=== PATIENT | female | born 1990 | race Caucasian/White ===

== ENCOUNTER 2018-03-22 11:51 | Inpatient (IN) ==
[2018-03-22 13:07] LABS: Bilirubin,Urine Negative (Negative); Blood,Urine Trace (Negative); Clarity,Urine Clear (Clear); Color,Urine Yellow (Yellow); Glucose,Urine (UA) Normal (Normal); Ketones,Urine Trace mg/dL (Negative); Leukocyte Esterase,Urine Negative (Negative); Nitrite,Urine Negative (Negative); Protein,Urine Negative (Neg-Trace); Specific Gravity,Urine < 1.005 (1.010-1.025); Urobilinogen,Urine Normal (Normal)
[2018-03-22 13:19] LABS: Bacteria,Urine None Seen per hpf (None-Few); Hyaline Casts,Urine None Seen per lpf (None-Few); RBC,Urine 0-3 per hpf (0-3); Squamous Epithelial Cell,Urine Few per lpf (None-Few); WBC,Urine 0-3 per hpf (0-3)
[2018-03-22 13:24] LABS: Amphetamine Screen,Urine Negative ng/mL (Cutoff=1000); Barbiturate Screen,Urine Negative ng/mL (Cutoff=200); Benzodiazepines Screen,Urine Negative ng/mL (Cutoff=200); Cannabinoid Screen,Urine Negative ng/mL (Cutoff = 50); Cocaine Screen,Urine Negative ng/mL (Cutoff= 300); Opiate Screen,Urine Negative ng/mL (Cutoff=300); Phencyclidine Screen,Urine Negative ng/mL (Cutoff=25)
--- NOTE | 2018-03-22 13:35 | OB/GYN History & Physical ---
Date of Encounter: 03/22/18 Time of Encounter: 13:29 Assessment and Plan (1) 36 weeks gestation of Current visit: Yes Status: Acute Patient admitted for delivery Dr. Chacon aware of patient's status and POC History of Present Illness Chief complaint: Spontaneous Labor HPI: Ms. Drake is a 27 year old female @ 36w6d presents to labor and delivery from office for labor evaluation. Patient was 5-6/80/0. Patient reports contractions that are increasing in intensity. Patient denies LOF or VB. Patient reports +FM. Patient denies any problems with current but was started on Labetalol for two weeks after last delivery in 2016. BPs today 130's/ 90's. Blood type: O Positive Rubella: Immune Hep B: Nonreactive GBS: Negative Past Med Surg Social Fam HX - Past Medical History Source: patient Medical history: hypertension, migraine Psychiatric history: no psych history - Past Surgical History Surgical History: cholecystectomy - Social History Smoking Status: Former smoker Smokeless Tobacco Status: No Alcohol use: none Drug use: none Occupational status: employed Current living situation: Home - Independent Activity Level: Independent ambulation Recent Out of Country Travel Within the Last 8 Weeks: No Exposure or Possible Exposure to Illness During Travel: No - Family History Mother Name: Herbie Living Status: Still Living Hx Family Cardiac Disorders: No Hx Family Respiratory Disorders: No Hx Family Cancer: No Hx Family GI Disorders: No Hx Family Endocrine Disorder: No Hx Family Neuromuscular Disorders: No Hx Family Neurologic Disorders: No Hx Family HEENT Disorders: No Hx Family Autoimmune Disorders: No Hx Family Medical Disorders: No Obstetrical History - Pregnancies : 3 Para: 1 Term: 1 : 0 Ab's: 1 Livin Medications and Allergies Vits96/Iron Fum/Folic [ Tablet] 1 each PO DAILY 03/22/18 [ History] 3 Allergy/AdvReac Type Severity Reaction Status Date / Time No Known Allergies Allergy Verified 05/04/15 15:39 Review of System OB - Constitutional Constitutional ROS IM: no chills, no fever(s), no headache(s) - Cardiovascular Cardiovascular: no chest pain, no leg edema, no lightheadedness, no palpitations , no syncope - Respiratory Respiratory: no dyspnea - Gastrointestinal Gastrointestinal: abdominal pain, no diarrhea, no heartburn, no nausea, no vomiting - Genitourinary Genitourinary: no abnormal vaginal bleeding, no difficulty urinating, no dysuria , no flank pain, no urinary frequency, no urinary urgency, no vaginal discharge , no vaginal odor, no vaginal pruritis Exam - Constitutional Constitutional: well developed, well nourished, no acute distress, average body habitus - HEENT HEENT: Normocephaly, Mucus Membranes Moist - Neck Neck exam: full ROM, supple - Lungs Respiratory exam: CTAB - Cardiovascular Cardiovascular exam: RRR, +S1, +S2 - Abdomen Abdomen: Present: bowel sounds normal, gravid, non tender - Extremities Extremities exam: full ROM Deep Tendon Reflex Grade: 2+ Normal - Cervix Dilation: 6 Effacement: 100 Station: 0 - Uterus Uterus exam: Present: normal size, normal contour - Anus/Rectum Anus/Rectum: Present: normal perianal skin - Comments Comments: FHR 135 bpm moderate variability +15x15 accels no decels noted. Contractions 2- 4 min apart. Cat. 1 tracing Results Abnormal lab results Ur Specific [place] < 1.005 (1.010-1.025) L 03/22/18 12:55 Urine Ketones Trace mg/dL (Negative) H 03/22/18 12:55 Urine Blood Trace (Negative) H 03/22/18 12:55 All other labs normal. - VTE Reasons for not Prescribing Prophylaxis: Treatment not Indicated - Low risk for VTE
[2018-03-22] MEDS ORDERED: Ondansetron 4 MG/2 ML VIAL IVP PRN (13:42)
[2018-03-22] MEDS ORDERED: Famotidine 20 MG/2 ML VIAL IVP PRN (13:42)
[2018-03-22] MEDS ORDERED: Naloxone 0.4 MG/ML INJ IVP PRN (13:42)
[2018-03-22] MEDS ORDERED: *HR* Nalbuphine 10 MG/ML AMPUL IVP PRN (13:42)
[2018-03-22] MEDS ORDERED: Ringers Solution, Lactated 1,000 ML IVC SCH (13:45)
[2018-03-22 14:04] LABS: Basophils % 0.3 %; Eosinophils % 0.3 %; Hemoglobin 13.6 g/dL (11.5-15.4); Immature Granulocytes % 0.4 % (0-4); Lymphocytes # 2.1 K/mcL (0.6-4.6); Lymphocytes % 17.6 %; Mean Corpuscular Hemoglobin 27.5 pg (28.0-33.3); Mean Platelet Volume 10.3 fL (9.4-12.4); Monocytes # 0.7 K/mcL (0.0-1.3); Neutrophils # 8.9 K/mcL (1.6-8.9); Platelet Count 261 K/mcL (140-400); Red Blood Count 4.94 M/mcL (3.82-4.97); Red Cell Distribution Width 13.6 % (11.5-14.5); Segmented Neutrophils % 75.4 %
[2018-03-22 14:33] LABS: Alanine Aminotransferase 16 Units/L (7-52); Aspartate Amino Transferase 19 Units/L (13-39); BUN/Creatinine Ratio 21 (6-26); Blood Urea Nitrogen 10 mg/dL (6-20); Lactate Dehydrogenase 121 Units/L (140-271); Uric Acid 5.8 mg/dL (2.3-7.6); eGFR For Non-African Americans > 60 (> 60)
--- NOTE | 2018-03-22 17:38 | Anesthesia Evaluation PreOp ---
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: Denies Any Significant HX Other Medical History: GERD Anesthesia History: No Prior Anesthetic Complications, Past Anesthesia (ann marie) : Yes Test: Positive Alcohol Use: none Drug use: none Medications and Allergies Vits96/Iron Fum/Folic [ Tablet] 1 each PO DAILY 03/22/18 [ History] 3 Allergy/AdvReac Type Severity Reaction Status Date / Time No Known Allergies Allergy Verified 05/04/15 15:39 - Meds/Allergy Pre-op Review Medications Reviewed: Yes Allergies Reviewed: Yes Beta Blockers on Current Med List: No Anesthesia Results - Labs 03/22/18 13:45 03/22/18 13:45 Anesthesia Exam 130/74 88 fht 134 Height: 5'1" Weight: 77 NPO (# of Hours): 8 Pain Scale: 3 Pain Scale Used: Numeric (1 - 10) - HEENT Pupil (Motor): Pupils equal Mallampati: II Teeth: Normal Oral Opening: Greater than 3 - COMMUNICATIONS ELECTRICIAN SUPERVISOR LOC: Oriented COMMUNICATIONS ELECTRICIAN SUPERVISOR Motor: Normal RUE, Normal LUE, Normal RLE, Normal LLE, Normal Face COMMUNICATIONS ELECTRICIAN SUPERVISOR Sensory: Normal: RUE, LUE, RLE, LLE, Face - Cardiac Rhythm: Regular Murmur: None - Pulmonary Breath Sounds: bilateral Clear Respiratory Effort: Symmetrical Anesthesia Assess/Plan ASA Score: 2 Modified Alea Scale for Level of Consciousness: Cooperative, oriented, and tranquil Anesthetic Plan: Regional Autologous Blood: No Monitoring Plan: Standard Monitors Recovery Plan: Other (risks discussed questions answered, consented)
[2018-03-22] MEDS ORDERED: *HR* FentaNYL (PF) 100 MCG/2 ML VIAL EP ONE (17:40)
[2018-03-22] MEDS ORDERED: *HR* Ropivacaine/PF 0.2% 20 ML VIAL EP ONE (17:40)
[2018-03-22] MEDS ORDERED: *HR* Ropivacaine/PF 0.2% 20 ML VIAL ONE (17:42)
[2018-03-22] MEDS ORDERED: *HR* FentaNYL (PF) 100 MCG/2 ML VIAL ONE (17:42)
[2018-03-22] MEDS ORDERED: Lidocaine -MPF 2% 5 ML VIAL ONE (17:42)
[2018-03-22] MEDS ORDERED: Epidural Premix (fent/bupiv) 110 ML EP SCH (17:45)
--- NOTE | 2018-03-22 18:28 | Anesthesia Procedures ---
Date of Encounter: 03/22/18 Time of Encounter: 18:25 Procedures: Anesthesia - Epidural/Spinal Patient ID/Chart reviewed: Yes Patient examined: Yes OB Eval: Gestational age: 39.3 OB Eval: : 4 OB Eval: Hx Para: 1 OB Eval: Dilated at (cm): 7 OB Eval: Contractions: Non-stressed pattern Consent Obtained: Yes Supplemental Oxygen: None/Room Air Site Prep: Aseptic Technique, Sterile prep and drape, 0.5% Chlorhexidine/Alcohol Patient position: upright Local Anesthetic: Lidocaine 1% Amount of Local Anesthetic used: 3 Touhy Needle Gauge: 18 Touhy Needle Depth (cm): 8 Catheter Depth at Skin (cm): 20 Test Dose (1.5% Lido + Epi): Volume given (mls): 3 Test Dose Result: Negative Loading Dose: Fentanyl (mcg): 100 Loading Dose: Other: rop 0.2% 10cc Loading Dose Administered: Thru Touhy Needle Infusion Med: 0.125% Bupivacaine w/ 2 mcg/ml Fentanyl Infusion Rate (mls/hr): 15 (pcea 5cc q30") Catheter Secured in Place: Tegaderm Interspace Used: L2-L3 Loss of Resistance (DUANE): Yes Blood: No CSF: No Paresthesia: No Procedure: aseptic, mor well VSS, effective Vitals + FHT's: 122/80 78 fht 144
[2018-03-22] MEDS ORDERED: Mag Hydrox/Al Hydrox/Simeth 30 ML UDC PO PRN (18:52)
--- NOTE | 2018-03-22 19:35 | OB Labor Progress Note ---
Date of Encounter: 03/22/18 Time of Encounter: 19:33 Labor Progress Note - Subjective Subjective: Patient resting comfortably with epidural in place. Patient denies any pain. - Cervix Cervix: 7/100/0 - Heart Tones Heart Tones: 125 bpm moderate variability +15x15 accels no decels noted. Cat. 1 tracing. - [place]: 5-6 min apart - Interventions Interventions: SVE, AROM moderate amount of clear fluid. - Plan Plan: Continue labor management anticipated Dr. Chacon up dated on patient's status
--- NOTE | 2018-03-23 03:51 | OB Labor Progress Note ---
Date of Encounter: 03/23/18 Time of Encounter: 03:49 Labor Progress Note - Subjective Subjective: Patient reports feeling some pressure. Patient also concerned about pushing with contractions so far apart. Discussed Option with patient to start pitocin to help regulate contractions. Patient would like to proceed with pitocin. - Cervix Cervix: 9.5/100/0 - Heart Tones Heart Tones: 135 bpm moderate variability +15x15 accels no decels noted. Cat. 1 tracing - Kinsey Kinsey: 3-5 min apart - Interventions Interventions: SVE per RN - Plan Plan: Continue labor management Will start Pitocin at this time anticipate
[2018-03-23] MEDS ORDERED: Oxytocin 20 units/ LR 1000 mL 20 UNIT/1,000 ML BAG IVC SCH ×2 (04:00→05:53)
--- NOTE | 2018-03-23 05:42 | OB/GYN Procedure Note ---
Delivery - Delivery Date: 03/23/18 Provider: Narcisa Stafford Intrapartum events: none Delivery induction: none Delivery augmentation: rupture of membranes, pitocin Delivery monitor: external FHT Anesthesia: epidural Quantitated Blood Loss: 200 - (s) A Infant Delivery Date: 03/23/18 Delivery Time: 05:04 Presentation: vertex Position: DAYDAY Route of delivery: Gender: Male Viability: Viable Pounds: 7 Ounces: 0 Weight Gram: 3185 kg at 1 minute: 8 at 5 mins: 8 Shoulder Dystocia: not encountered Specimens collected: cord blood Placenta: spontaneous Cord: nuchal cord (x1), true knot (x1), 3 umbilical vessels - Repair Episiotomy: none Laceration Description: Periurethral (right periurethral-repaired with 4-0 vicryl), Superficial - Complications Delivery complications: none - Disposition Mom disposition: stable in LDR [place] disposition: stable in LDR - Comments Comments: Called to LDR for delivery. Patient pushing with RN. Patient in stirrups and prepped for delivery. Under maternal effort patient spontaneously delivered a viable male . A nuchal cord x1 was noted and easily reduced. No shoulder dystocia or meconium was encountered. was placed on maternal abdomen. Cord was clamped and cut after pulsations ceased. Cord blood was collected. A right side periurethral laceration was noted and repaired with 4-0 vicryl. Patient tolerated well. Placenta delivered spontaneously and intact. EBL 200. [facility] provided all counts correct. Both Mother and infant stable in LDR for 2 hour recovery.
[2018-03-23] MEDS ORDERED: Lanolin 7 G OINT...G. TP PRN (05:53)
[2018-03-23] MEDS ORDERED: *HR* HYDROcodone/Acet 5/325 mg TABLET PO PRN (05:53)
[2018-03-23] MEDS ORDERED: Measles/Mumps/Rubella Vacc 0.5 ML VIAL SQ PRN (05:53)
[2018-03-23] MEDS ORDERED: Acetaminophen 325 MG TABLET PO PRN (05:53)
[2018-03-23] MEDS ORDERED: Benzocaine/Menthol 56 GM AEROSOL SPRAY TP PRN (05:53)
[2018-03-23] MEDS: Ibuprofen 600 MG TABLET PO PRN ×3 (06:11→20:53)
[2018-03-23] MEDS: Prenatal Vit/FA 1 EACH TABLET PO SCH (08:58)
[2018-03-24 07:31] VITALS: BP 132/84
[2018-03-24] MEDS: Prenatal Vit/FA 1 EACH TABLET PO SCH (08:12)
--- NOTE | 2018-03-24 10:13 | Discharge Summary ---
Date of Encounter: 03/24/18 Time of Encounter: 10:10 - Discharge Diagnosis (1) Status post vaginal delivery Priority: Primary Status: Acute Comments: 27 y/o on PPD#1 after of a baby boy at 36w6d. Meeting PP milestones, reports good mood. Patient bottle feeding. Discharge home today. - Discharge Medications Prescriptions: Ibuprofen [Motrin] 600 mg PO Q6HR PRN #30 tablet PRN Reason: Cramping Docusate [Colace] 100 mg PO BID #60 capsule Home Medications: Vits96/Iron Fum/Folic [ Tablet] 1 each PO DAILY 03/22/18 [ History] Benzocaine/Menthol [place] [Dermoplast [place]] 1 appl TP QID PRN aerosol 03/24/18 [Rx] Docusate [Colace] 100 mg PO BID #60 capsule 03/24/18 [Rx] Ibuprofen [Motrin] 600 mg PO Q6HR PRN #30 tablet 03/24/18 [Rx] Lanolin [Lansinoh] 1 appl TP TID PRN oint...g. 03/24/18 [Rx] Allergies/Adverse Reactions: 3 Allergy/AdvReac Type Severity Reaction Status Date / Time No Known Allergies Allergy Verified 05/04/15 15:39 Data Procedures and tests throughout hospitalization: Laboratory Tests 03/22/18 03/22/18 03/22/18 12:55 12:55 13:45 WBC 11.8 H RBC 4.94 Hgb 13.6 Hct 40.0 MCV 81.0 L MCH 27.5 L MCHC 34.0 RDW 13.6 Plt Count 261 MPV 10.3 Immature Gran % 0.4 Seg Neutrophils % 75.4 Lymphocytes % 17.6 Monocytes % 6.0 Eosinophils % 0.3 Basophils % 0.3 Neutrophils # 8.9 Lymphocytes # 2.1 Monocytes # 0.7 Eosinophils # 0.0 Basophils # 0.0 BUN Creatinine Est GFR ( Amer) Est GFR (Non-Af Amer) BUN/Creatinine Ratio Uric Acid AST ALT Lactate Dehydrogenase Urine Color Yellow Urine Clarity Clear Urine pH 7.0 Ur Specific [place] < 1.005 L Urine Protein Negative Urine Glucose (UA) Normal Urine Ketones Trace H Urine Blood Trace H Urine Nitrite Negative Urine Bilirubin Negative Urine Urobilinogen Normal Ur Leukocyte Esterase Negative Urine Microscopic RBC 0-3 Urine Microscopic WBC 0-3 Ur Squamous Epith Cells Few Urine Bacteria None Seen Hyaline Casts None Seen Ur Culture Indicated? NO Urine Opiates Screen Negative Ur Barbiturates Screen Negative Ur Phencyclidine Scrn Negative Ur Amphetamines Screen Negative U Benzodiazepines Scrn Negative Urine Cocaine Screen Negative U Marijuana (THC) Screen Negative Ur Drug Screen Interp See Below 03/22/18 13:45 WBC RBC Hgb Hct MCV MCH MCHC RDW Plt Count MPV Immature Gran % Seg Neutrophils % Lymphocytes % Monocytes % Eosinophils % Basophils % Neutrophils # Lymphocytes # Monocytes # Eosinophils # Basophils # BUN 10 Creatinine 0.47 L Est GFR ( Amer) > 60 Est GFR (Non-Af Amer) > 60 BUN/Creatinine Ratio 21 Uric Acid 5.8 AST 19 ALT 16 Lactate Dehydrogenase 121 L Urine Color Urine Clarity Urine pH Ur Specific [place] Urine Protein Urine Glucose (UA) Urine Ketones Urine Blood Urine Nitrite Urine Bilirubin Urine Urobilinogen Ur Leukocyte Esterase Urine Microscopic RBC Urine Microscopic WBC Ur Squamous Epith Cells Urine Bacteria Hyaline Casts Ur Culture Indicated? Urine Opiates Screen Ur Barbiturates Screen Ur Phencyclidine Scrn Ur Amphetamines Screen U Benzodiazepines Scrn Urine Cocaine Screen U Marijuana (THC) Screen Ur Drug Screen Interp Date of admission: 03/22/18 11:51 Primary care physician: Juana Sam CNP Consults: 03/23/18 05:53 Consult to Payroll Benefits Clerk [CONS] Routine Comment: Vaginal delivery, consult needed Discharging clinician: Britt Ferreira Anticipated date of discharge: 03/24/18 - Patient Status Disposition: Home, Self-Care Condition: Good Functional capacity at discharge: independent ambulation Overall status at discharge: patient is progressing back to baseline - Discharge Instructions Follow Up With: Juana Sam CNP [Primary Care Provider] - Sylvia Merrill MD [Partnered Physician] - Additional Instructions: LABOR AND DELIVERY DISCHARGE INSTRUCTIONS Signs and Symptoms to be Reported to your Doctor Immediately: * Sudden gush, continuous or intermittent lead of fluid from vagina (note the time of gush and color of fluid) * Onset of bright red vaginal bleeding with or without pain (if you had a vaginal exam during this visit you may notice some dark red spotting. This is normal.) * Contractions that are 5 minutes apart (from the beginning of one contraction to the beginning of the next) and last 45-60 seonds; contractions that you can no longer walk, talk or laugh through. * A change in the baby's activity. This could be an increase or decrease in activity. * Severe headache which does not go away with tylenol. * Sudden swelling in the face, hands, arms and/or legs. * Upper abdominal pain - sometimes associated with heartburn or nausea and is not relieved by Maalox, Mylanta or Tums. * Kick Counts __ One hour after a meal, lay down on one side in a quiet place. Count the number of time the baby moves during an hour. If less than 6 movements, notify your physician Diet: *Force fluids, 8 to 10 tall glasses of fluid per day - may include popsicles and jello *Limit caffeine - this includes chocolate, coffee, tea, any soft drink containing such as all [place], Doroteo Yellow and Mountain Dew - Diet and Activity Activity: increase activity as tolerated Diet: advance to your usual diet Hospital Course Reason for admission: IUP - Delivery: Episiotomy: none Laceration: other (Periurethral (right periurethral-repaired with 4-0 vicryl), Superficial) Other procedures: none complications: none Discharge diagnosis: delivery [place] baby: male Hospital course: - Delivery Date: 03/23/18 Provider: Narcisa Stafford Intrapartum events: none Delivery induction: none Delivery augmentation: rupture of membranes, pitocin Delivery monitor: external FHT Anesthesia: epidural Quantitated Blood Loss: 200 - Infant (s) Infant A Delivery Date: 03/23/18 Delivery Time: 05:04 Presentation: vertex Position: DAYDAY Route of delivery: Gender: Male Viability: Viable Pounds: 7 Ounces: 0 Weight Gram: 3185 kg at 1 minute: 8 at 5 mins: 8 Shoulder Dystocia: not encountered Specimens collected: cord blood Placenta: spontaneous Cord: nuchal cord (x1), true knot (x1), 3 umbilical vessels - Repair Episiotomy: none Laceration Description: Periurethral (right periurethral-repaired with 4-0 vicryl), Superficial - Complications Delivery complications: none - Disposition Mom disposition: stable in LDR [place] disposition: stable in LDR - Comments Comments: Called to LDR for delivery. Patient pushing with RN. Patient in stirrups and prepped for delivery. Under maternal effort patient spontaneously delivered a viable male infant. A nuchal cord x1 was noted and easily reduced. No shoulder dystocia or meconium was encountered. was placed on maternal abdomen. Cord was clamped and cut after pulsations ceased. Cord blood was collected. A right side periurethral laceration was noted and repaired with 4-0 vicryl. Patient tolerated well. Placenta delivered spontaneously and intact. EBL 200. [facility] provided all counts correct. Both Mother and infant stable in LDR for 2 hour recovery. Time Attestation: Total time spent providing and/or coordinating discharge services: Exam - Constitutional Vitals: Temp Pulse Resp BP Pulse Ox 97.5 F L 73 16 132/84 99 03/24/18 07:31 03/24/18 07:31 03/24/18 07:31 03/24/18 07:31 03/24/18 04:35 General appearance IM: A&O X 3, pleasant, no acute distress - Respiratory Respiratory exam: Present: CTAB - Cardiovascular Cardiovascular exam IM: Present: RRR, +S1, +S2 - GI/Abdominal GI/Abdominal exam IM: normal bowel sounds - Uterine Tone: Firm Uterus Position: 1 Finger Below Umbilicus - Extremities Exam Extremities exam IM: Present: normal inspection. Absent: calf tenderness, pedal edema - Neurological Exam Neurological exam: alert, oriented X3
== END 2018-03-24 13:30 | disposition home or self-care (01) | DRG 775 ==
LOC: 1NENULAB → OBSVTOIN 11:51 → 1NENUOBS 03-23 08:02
PROVIDERS: ADMIT Advanced Practice Midwife; ATTEND Advanced Practice Midwife